=== PATIENT | male | born 1970 | race Caucasian/White ===

== ENCOUNTER 2016-08-04 18:49 | Emergency (ER) | payer MEDICARE, OTHER ==
[~2016-08-04] VITALS: Ht 172.7 cm; Wt 72.0 kg
[2016-08-04 18:52] VITALS: BP 137/75; PULSE 94; RESP 12; TEMP 97.6; O2SAT 96
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
== END 2016-08-05 01:05 | disposition home or self-care (01) ==
LOC: NEPC 18:49
DX: F11.20 Opioid dependence, uncomplicated (principal); F17.210 Nicotine dependence, cigarettes, uncomplicated; F31.9 Bipolar disorder, unspecified; Z96.643 Presence of artificial hip joint, bilateral; Z96.698 Presence of other orthopedic joint implants
CPT/HCPCS: 99282

== ENCOUNTER 2016-08-05 01:16 | Emergency (ER) | payer MEDICARE, OTHER ==
[2016-08-05 01:18] VITALS: BP 132/79; PULSE 88; RESP 16; TEMP 98.5; O2SAT 97
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
== END 2016-08-05 01:58 | disposition home or self-care (01) ==
LOC: NEPB 01:16
DX: F19.10 Other psychoactive substance abuse, uncomplicated (principal); F10.10 Alcohol abuse, uncomplicated; F17.210 Nicotine dependence, cigarettes, uncomplicated; F14.90 Cocaine use, unspecified, uncomplicated; F15.90 Other stimulant use, unspecified, uncomplicated; Z59.0 Homelessness
CPT/HCPCS: 99282